=== PATIENT | female | born 1985 | race Caucasian/White ===

== ENCOUNTER → 2016-09-23 | Outpatient (CLI) | payer BC, OTHER ==
[~2016-09-23] MED LIST: ALBUAER2 INH; CLX20 PO; CPR500 PO; CYAN3INJ SQ; FRRG27 PO; GLC500 PO; LEVO-217 PO; LISI-725 PO; MCR5 PO; OCELLA PO; OXYC-57 PO; PANT40TA PO; SIMV40TA2 PO
== END | disposition home or self-care (01) ==
LOC: C.PAPS 09:09
PROVIDERS: ATTEND Obstetrics & Gynecology
DX: Z01.419 Encounter for gynecological examination (general) (routine) without abnormal findings (principal)

== ENCOUNTER → 2017-07-27 | Outpatient (CLI) | payer OTHER ==
--- NOTE | 2017-07-27 08:15 | DIAGNOSTIC IMAGING REPORT ---
GI SERIES W/O KUB CLINICAL HISTORY: DYSPHAGIAdysphagia COMPARISON STUDY: None FLUOROSCOPY TIME: 3.2 minutes. FINDINGS: Survey images demonstrate what appears to be a lap band device in the region of the gastric fundus. It is uncertain if it is completely inflated. Patient initiated swallowing function well. Esophageal motility is somewhat diminished. There is moderate residual food content within the esophagus. There is a small hiatal hernia. There is free flow of contrast to the stomach. No significant narrowing of the gastric fundus or distal esophagus is identified. There is good flow of contrast to the small bowel. There is no evidence for gastric outlet obstruction. IMPRESSION: 1. Residual content within the mid to distal esophagus raising the possibility of diminished esophageal motility and/or emptying. 2. Lap band device is present although it does not appear to be creating any significant narrowing of the stomach. 3. Remainder of the study is unremarkable with no evidence for gastric outlet obstruction. The above report was generated using voice recognition software. It may contain grammatical, syntax or spelling errors. Electronically signed by: Scottie Hercules M.D. 07/27/2017 8:14 AM Dictated Date/Time: 07/27/2017 8:11 AM
== END | disposition home or self-care (01) ==
LOC: C.RAD 07:16
PROVIDERS: ATTEND Internal Medicine
DX: R13.10 Dysphagia, unspecified (principal); Z98.84 Bariatric surgery status

== ENCOUNTER → 2017-09-13 | Day surgery (SDC) | payer OTHER ==
[2017-09-06 12:16] VITALS: BMI 38.0
[~2017-09-13] VITALS: Ht 165.1 cm; Wt 104.5 kg
[~2017-09-13] MED LIST changes: -ALBUAER2 INH; +ATOR-24 PO; +CALC500T72 PO; +CANA1TAB3 PO; +CITA40TA4 PO; -CLX20 PO; -CPR500 PO; +CYAN100020 PO; -CYAN3INJ SQ; +FENTANYL CITRATE INJ 50 MCG/1 ML 2 ML VIAL ONE; -FRRG27 PO; +GLC/500 PO; -GLC500 PO; -LEVO-217 PO; +LEVO-253 PO; +LEVO50TA6 PO; +LIDOCAINE HCL 2% 2 ML VIAL (20MG/ML) ONE; -MCR5 PO; -OCELLA PO; +ONDANSETRON INJ 2 MG/ML 2 ML VIAL ONE; -OXYC-57 PO; +OYST500T47 PO; -PANT40TA PO; +PROPOFOL IV EMULSION 10 MG/ML 20 ML VIAL IV ONE; +RANI150T85 PO; -SIMV40TA2 PO; +SODIUM CHLORIDE 0.9% 500ML 500 ML IV ONE; +VNTHFA/IN INH
--- NOTE | 2017-09-13 08:25 | Endo History and Physical ---
History & Physical Date of Service: Sep 13, 2017. Chief Complaint: Abnormal Barium Swallow Referring Physician: Dr. Huang History of Present Illness 31 yo CF who presents for EGD secondary to abnormal barium swallow. Past Surgical History Hx Cardiac Surgery: No Hx Internal Defibrillator: No Hx Pacemaker: No Hx Abdominal Surgery: Yes (GASTRIC BANDING) Hx of Implantable Prosthesis: No Hx Post-Op Nausea and Vomiting: Yes Hx Cancer Surgery: No Hx Thoracic Surgery: No Hx Orthopedic: No Hx Urinary Tract Surgery: Yes (LITHOTRIPSY, CYSTOSCOPY WITH STONE REMOVAL X 2) Family History Esophogeal CA Social History Smoking Status: Never Smoker Hx Substance Use: No Hx Alcohol Use: No Allergies Coded Allergies: No Known Allergies (Verified , NONE, 09/06/17) Current Medications Reported Home Medications Medications Dose Route/Sig Max Daily Dose Days Date Category Ventolin Hfa (Albuterol) 200 Puffs/22097 Mcg Aers 2-4 Puffs INH Q6H PRN 09/06/17 Reported Calcium (Oyster Shell) 500 Mg Tab Unknown Dose PO QAM 09/06/17 Reported Vitamin B12 (Cyanocobalamin) 1,000 Mcg Tab 1 Tab PO QAM 09/06/17 Reported Vitamin C (Calcium Ascorbate) 500 Mg Tab 1 Tab PO QAM 09/06/17 Reported Zantac (Ranitidine HCl) 150 Mg Tab 150 Mg PO BID PRN 09/06/17 Reported Glucophage (Metformin Hcl) 500 Mg Tab 2 Tab PO QAM 09/06/17 Reported Zestril (Lisinopril) 20 Mg Tab 20 Mg PO QAM 09/06/17 Reported Levothyroxine Sodium 50 Mcg Tab 1 Tab PO QAM 09/06/17 Reported Kurvelo (Levonorgestrel & Eth Estradiol) 1 Tab Tab 1 Tab PO QAM 09/06/17 Reported Invokana (Canagliflozin) 300 Mg Tab 1 Tab PO QAM 09/06/17 Reported Citalopram Hydrobromide (Citalopram) 40 Mg Tab 1 Tab PO QAM 09/06/17 Reported Lipitor (Atorvastatin Calcium) 40 Mg Tab 40 Mg PO QAM 09/06/17 Reported Vital Signs Weight (Kilograms): 104.55 Height (Feet): 5 Height (Inches): 5 Physical Exam General Appearance: WD/WN, no apparent distress Respiratory/Chest: Auscultation: breath sounds normal Cardiovascular: Heart Auscultation: RRR Abdomen: Bowel Sounds: normal Inspection & Palpation: soft, non-distended, no tenderness, guarding & rebound Assessment and Plan Assessment: 31 yo CF who presents for EGD secondary to abnormal barium swallow. Plan: Proceed with EGD
[2017-09-13 08:27] VITALS: Ht 165.1 cm; Wt 104.5 kg
[2017-09-13 08:34] VITALS: TEMP 36.9
--- NOTE | 2017-09-13 09:16 | Discharge Instructions ---
Endoscopy Patient Instructions Date / Procedure(s) Performed Sep 13, 2017. EGD Allergy Information Coded Allergies: No Known Allergies (Verified , NONE, 09/06/17) Discharge Date / Findings Sep 13, 2017. Reflux esophagitis s/p biopsies Gastritis s/p biopsies Gastric band slipped proximally Medication Instructions Stopped Medication(s): stopped all medication 1) Start Protonix 40mg by mouth each morning 1/2 hour prior to breakfast. 2) OK to use Ranitidine 150mg by mouth twice daily as needed. 3) OK to resume all medications today as prescribed Reported Home Medications Medications Dose Route/Sig Max Daily Dose Days Date Category Ventolin Hfa (Albuterol) 200 Puffs/87343 Mcg Aers 2-4 Puffs INH Q6H PRN 09/06/17 Reported Calcium (Oyster Shell) 500 Mg Tab Unknown Dose PO QAM 09/06/17 Reported Vitamin B12 (Cyanocobalamin) 1,000 Mcg Tab 1 Tab PO QAM 09/06/17 Reported Vitamin C (Calcium Ascorbate) 500 Mg Tab 1 Tab PO QAM 09/06/17 Reported Zantac (Ranitidine HCl) 150 Mg Tab 150 Mg PO BID PRN 09/06/17 Reported Glucophage (Metformin Hcl) 500 Mg Tab 2 Tab PO QAM 09/06/17 Reported Zestril (Lisinopril) 20 Mg Tab 20 Mg PO QAM 09/06/17 Reported Levothyroxine Sodium 50 Mcg Tab 1 Tab PO QAM 09/06/17 Reported Kurvelo (Levonorgestrel & Eth Estradiol) 1 Tab Tab 1 Tab PO QAM 09/06/17 Reported Invokana (Canagliflozin) 300 Mg Tab 1 Tab PO QAM 09/06/17 Reported Citalopram Hydrobromide (Citalopram) 40 Mg Tab 1 Tab PO QAM 09/06/17 Reported Lipitor (Atorvastatin Calcium) 40 Mg Tab 40 Mg PO QAM 09/06/17 Reported Provider Instructions Activity Restrictions - No exercising or heavy lifting for 24 hours. - Do not drink alcohol the day of the procedure. - Do not drive a car or operate machinery until the day after the procedure. - Do not make any important decisions or sign important papers in 24 hours after the procedure. Following Day: - Return to full activity which may include returning to work/school. Diet Start your diet with liquids and light foods (jello, soup, juice, toast). Then eat your usual diet if not nauseated. Treatment For Common After Affects For mild abdominal pain, bloating, or excessive gas: - Rest - Eat lightly - Lie on right side Follow-Up Information Follow-up with Dr. Huang as scheduled Follow-up with physician who placed gastric band for further evaluation. Anesthesia Information What You Should Know You have had a procedure that required some medicine to reduce anxiety and discomfort. This treatment is called moderate sedation. After receiving the treatment, you may be sleepy, but you will be able to breathe on your own. The effects of the treatment may last for several hours. Follow these instructions along with Activity/Diet recommendations noted above: * Do NOT do anything where dizziness or clumsiness would be dangerous. * Rest quietly at home today, then you can be up and about tomorrow. * Have a responsible person stay with you the rest of today. * You may have had an I.V. today. If so, you may take the dressing off later today. Recommendations Call your doctor if: * Trouble breathing * Continuous vomiting for more than 24 hours * Temperature above 101 degrees * Severe abdominal pain or bloating * Pain not relieved by pain medicine ordered * There is increased drainage or redness from any incision * A large amount of rectal bleeding greater than 2-3 tablespoons. (If you had a polyp/s removed or have hemorrhoids, a small amount of blood - from the rectum is to be expected.) * You have any unanswered questions or concerns. IN THE EVENT OF A SERIOUS EMERGENCY, GO TO THE NEAREST EMERGENCY ROOM Your discharge instructions were prepared by provider Juan Watts. Patient Instructions Signature Page Johanny Jones Patient (or Guardian) Signature/Date: I have read and understand the instructions given to me by my caregivers. Caregiver/RN/Doctor Signature/Date: The above-named patient and/or guardian has received patient instructions on this date. + Original Patient Signature Page (only) stays with chart. Please make copy for patient.
--- NOTE | 2017-09-13 09:30 | GI REPORT ---
Patient Name: Johanny Jones Procedure Date: 09/13/2017 8:51 AM Date of : 1985 Admit Type: Outpatient Age: 31 Gender: Female Attending MD: Juan Watts DO Procedure: Upper GI endoscopy Providers: Juan Watts DO Referring MD: Urban Huang Indications: Abnormal UGI series Medicines: Monitored Anesthesia Care Complications: No immediate complications. Estimated Blood Loss: Estimated blood loss: none. Procedure: Pre-Anesthesia Assessment: - Prior to the procedure, a History and Physical was performed, and patient medications and allergies were reviewed. The patient's tolerance of previous anesthesia was also reviewed. The risks and benefits of the procedure and the sedation options and risks were discussed with the patient. All questions were answered, and informed consent was obtained. Prior Anticoagulants: The patient has taken no previous anticoagulant or antiplatelet agents. ASA Grade Assessment: III - A patient with severe systemic disease. After reviewing the risks and benefits, the patient was deemed in satisfactory condition to undergo the procedure. After obtaining informed consent, the endoscope was passed under direct vision. Throughout the procedure, the patient's blood pressure, pulse, and oxygen saturations were monitored continuously. The On-site loaner was introduced through the mouth, and advanced to the second part of duodenum. The upper GI endoscopy was accomplished without difficulty. The patient tolerated the procedure well. Findings: LA Grade C (one or more mucosal breaks continuous between tops of 2 or more mucosal folds, less than 75% circumference) esophagitis with no bleeding was found. Biopsies were taken with a cold forceps for histology. Evidence of a patent vertical banded gastroplasty was found. A pouch was found containing food debris in the distal esophagus. It appears to be proximal to the intended location. This was traversed. Localized moderate inflammation characterized by erosions and erythema was found in the gastric antrum. Biopsies were taken with a cold forceps for histology. The examined duodenum was normal. Impression: - LA Grade C reflux esophagitis. Biopsied. - Patent vertical banded gastroplasty. - Gastritis. Biopsied. - Normal examined duodenum. Recommendation: - Resume previous diet. - Continue present medications. - Await pathology results. - Return to primary care physician as previously scheduled. Juan Watts DO 09/13/2017 9:13:26 AM This report has been signed electronically. Note Initiated On: 09/13/2017 8:51 AM Number of Addenda: 0 I attest to the content of the Intraoperative Record and orders documented therein, exceptions below {[id number]}
[2017-09-13 09:38] VITALS: BP 102/70; PULSE 81; O2SAT 96
--- NOTE | 2017-09-13 09:47 | Anesthesiology Progress Note ---
Anesthesia Post Op Note Date & Time Sep 13, 2017 at 09:47 Vital Signs Pain Intensity: 0 Vital Signs Past 12 Hours Date Time Temp Pulse Resp B/P (MAP) Pulse Ox O2 Delivery O2 Flow Rate FiO2 09/13/17 09:38 81 20 102/70 (81) 96 Room Air 09/13/17 09:23 81 20 104/62 (76) 96 Room Air 09/13/17 09:08 90 20 120/64 (82) 97 Room Air 09/13/17 08:34 36.9 97 20 134/73 (93) 95 Room Air Notes Mental Status: alert / awake / arousable, participated in evaluation Pt Amnestic to Procedure: Yes Nausea / Vomiting: adequately controlled Pain: adequately controlled Airway Patency, RR, SpO2: stable & adequate BP & HR: stable & adequate Hydration State: stable & adequate Anesthetic Complications: no major complications apparent
== END | disposition home or self-care (01) ==
LOC: C.GI 07:52
PROVIDERS: ATTEND Internal Medicine
DX: R93.3 Abnormal findings on diagnostic imaging of other parts of digestive tract (principal); K21.0 Gastro-esophageal reflux disease with esophagitis; K29.70 Gastritis, unspecified, without bleeding; I10 Essential (primary) hypertension; E11.9 Type 2 diabetes mellitus without complications; Z98.84 Bariatric surgery status; Z98.890 Other specified postprocedural states; Z79.899 Other long term (current) drug therapy; Z80.0 Family history of malignant neoplasm of digestive organs

== ENCOUNTER → 2017-12-28 | Outpatient (CLI) | payer OTHER ==
[~2017-12-28] MED LIST changes: -FENTANYL CITRATE INJ 50 MCG/1 ML 2 ML VIAL ONE; -LIDOCAINE HCL 2% 2 ML VIAL (20MG/ML) ONE; -ONDANSETRON INJ 2 MG/ML 2 ML VIAL ONE; -PROPOFOL IV EMULSION 10 MG/ML 20 ML VIAL IV ONE; -SODIUM CHLORIDE 0.9% 500ML 500 ML IV ONE
== END | disposition home or self-care (01) ==
LOC: C.LABSPEC 18:11 → C.PAPS 18:12
PROVIDERS: ATTEND Obstetrics & Gynecology
DX: Z12.4 Encounter for screening for malignant neoplasm of cervix (principal)